=== PATIENT | female | born 1950 | race Caucasian/White ===

== ENCOUNTER 2017-12-08 14:18 | Emergency (ER) | payer OTHER ==
[~2017-12-08] VITALS: Ht 172.7 cm; Wt 103.1 kg
[~2017-12-08 14:18] MED LIST: AMLO10TA2 PO; ASPI-232 PO; CALCTAB5 PO; PANT40TA PO; SULF800T23 PO
[2017-12-08 14:23] VITALS: TEMP 36.8; Ht 172.7 cm; Wt 103.1 kg
--- NOTE | 2017-12-08 14:47 | EMERGENCY ROOM VISIT NOTE ---
History Report prepared by Minerva: Francisca Denny Under the Supervision of: Dr. Mateo Mccoy M.D. First contact with patient: 14:29 Chief Complaint: ANKLE PAIN Stated Complaint: L ANKLE PAIN/ULCERS History of Present Illness The patient is a 67 year old white female with a past medical history of skin problems and ulcers who presents to the ED with a cc of worsening left ankle ulcers beginning In April 2017. Positive redness and drainage. Negative nausea, vomiting, fevers, chills. She describes her pain as a burning and stinging that radiates up her calf. She reports they had ulcers in April 2017 that never healed correctly and turned into a wound. She states she went to the wound center where she had surgery and they referred her to Dr. Deluca, Orthopedics. The patient states she wears compression socks which caused damage to her left Achilles. Source of History: patient Onset: April 2017 Position: ankle (left) Quality: burning, other (stinging) Timing: worsening Associated Symptoms: No fevers, No chills, No nausea, No vomiting Note: Positive redness and drainage. Review of Systems See HPI for pertinent positives and negatives. A total of ten systems were reviewed and were otherwise negative. Past Medical & Surgical Medical Problems: (1) Skin problem Surgical Problems: (1) H/O: hysterectomy Family History No pertinent family history Social History Smoking Status: Never Smoker Smokeless Tobacco Use: No Alcohol Use: none Drug Use: none Marital Status: Occupation Status: retired Current/Historical Medications Scheduled Amlodipine Besylate (Norvasc), 1 TAB PO DAILY Aspirin (Aspir-81), 1 TAB PO DAILY Calcium Carbonate (Calcium), 600 MG PO DAILY Diclofenac (Voltaren), 75 MG PO BID Multiple Vitamins W/ Minerals (Centrum Silver Adult 50+), 1 TAB PO DAILY Pantoprazole (Protonix), 40 MG PO DAILY Sulfa/Trimethoprim (Bactrim Ds 800MG/160MG), 1 TAB PO BID Allergies Coded Allergies: No Known Allergies (Verified , `, 12/08/17) Physical Exam Vital Signs Date Time Temp Pulse Resp B/P (MAP) Pulse Ox O2 Delivery O2 Flow Rate FiO2 12/08/17 16:14 64 16 90/65 96 Room Air 12/08/17 14:23 36.8 112 20 159/96 95 Room Air Physical Exam GENERAL: Awake, alert, well-appearing, NAD HENT: Normocephalic, atraumatic. EYES: Normal conjunctiva. Sclera non-icteric. NECK: Supple. No nuchal rigidity. FROM. RESPIRATORY: CTAB, no rhonchi, wheezing, crackles CARDIAC: RRR, no MRG ABDOMEN: Soft, NTND, BS+ MSK: No chest wall TTP, no LE edema. Mild pain over the medial aspect of the left ankle. Scarring over the distal medial lower leg. 2 healing escar with mild redness. No fluctuance, no drainage, no calor. 2+ DP pulses. Good flexion and extension at the ankle. No sensory deficits. No calf pain, no redness. NEURO: GCS 15, CN 2-12 intact, moves all 4s on command SKIN: No rash or jaundice noted. Medical Decision & Procedures Laboratory Results 12/08/17 15:20 Red Blood Count 4.78, Mean Corpuscular Volume 82.4, Mean Corpuscular Hemoglobin 27.0, Mean Corpuscular Hemoglobin Concent 32.7, Mean Platelet Volume 9.7, Neutrophils (%) (Auto) 54.5, Lymphocytes (%) (Auto) 28.9, Monocytes (%) (Auto) 11.1, Eosinophils (%) (Auto) 4.9, Basophils (%) (Auto) 0.4, Neutrophils # (Auto ) 2.81, Lymphocytes # (Auto) 1.49, Monocytes # (Auto) 0.57, Eosinophils # (Auto ) 0.25, Basophils # (Auto) 0.02 12/08/17 15:20 Test 12/08/17 15:20 White Blood Count 5.15 K/uL (4.8-10.8) Red Blood Count 4.78 M/uL (4.2-5.4) Hemoglobin 12.9 g/dL (12.0-16.0) Hematocrit 39.4 % (37-47) Mean Corpuscular Volume 82.4 fL (80-100) Mean Corpuscular Hemoglobin 27.0 pg (25-34) Mean Corpuscular Hemoglobin Concent 32.7 g/dl (32-36) Platelet Count 223 K/uL (130-400) Mean Platelet Volume 9.7 fL (7.4-10.4) Neutrophils (%) (Auto) 54.5 % Lymphocytes (%) (Auto) 28.9 % Monocytes (%) (Auto) 11.1 % Eosinophils (%) (Auto) 4.9 % Basophils (%) (Auto) 0.4 % Neutrophils # (Auto) 2.81 K/uL (1.4-6.5) Lymphocytes # (Auto) 1.49 K/uL (1.2-3.4) Monocytes # (Auto) 0.57 K/uL (0.11-0.59) Eosinophils # (Auto) 0.25 K/uL (0-0.5) Basophils # (Auto) 0.02 K/uL (0-0.2) RDW Standard Deviation 47.8 fL (36.4-46.3) RDW Coefficient of Variation 16.0 % (11.5-14.5) Immature Granulocyte % (Auto) 0.2 % Immature Granulocyte # (Auto) 0.01 K/uL (0.00-0.02) Erythrocyte Sedimentation Rate 22 mm/hr (0-21) Anion Gap 5.0 mmol/L (3-11) Est Creatinine Clear Calc Drug Dose 83.9 ml/min Estimated GFR () 84.5 Estimated GFR (Non- 72.9 BUN/Creatinine Ratio 14.7 (10-20) Calcium Level 8.8 mg/dl (8.5-10.1) C-Reactive Protein 0.33 mg/dl (0-0.29) Laboratory results reviewed by me Medications Administered Medications (Trade) Dose Ordered Sig/Stef Route Start Time Stop Time Status Last Admin Dose Admin Morphine Sulfate (MoRPHine SULFATE INJ) 4 mg NOW STAT IV 12/08/17 14:50 12/08/17 14:54 DC 12/08/17 15:20 4 MG Tramadol HCl (Ultram Tab) 50 mg NOW STAT PO 12/08/17 14:50 12/08/17 14:54 DC 12/08/17 15:19 50 MG Acetaminophen (Tylenol Tab) 650 mg NOW STAT PO 12/08/17 14:50 12/08/17 14:54 DC 12/08/17 15:20 650 MG Ondansetron HCl (Zofran Inj) 4 mg NOW STAT IV 12/08/17 15:48 12/08/17 15:49 DC 12/08/17 15:54 4 MG ED Course 1433: The patient was evaluated in room A9. A complete history and physical exam was performed. 1625: I reevaluated the patient. Discussed results and discharge instructions: She verbalized understanding and agreement. The patient is ready for discharge. Medical Decision The patient is a 67 year old white female with a past medical history of skin problems and ulcers who presents to the ED with a cc of worsening left ankle ulcers beginning In April 2017. Positive redness and drainage. Negative nausea, vomiting, fevers, chills. Nursing notes reviewed. Ancillary studies and prior records reviewed. Differential diagnosis: Etiologies such as cellulitis, abscess, arterial, thrombis, neuropathy, venous insufficiency, MRSA infection, DVT, necrotizing fasciitis, dermatitis, drug eruption, as well as others were entertained. Patient was seen and evaluated the bedside. Patient has had some recurrent issues with her left lower extremity. Patient describes what sounds like a sort of vein stripping procedure and since then she had developed some ulcers the medial aspect of her left lower extremity. The patient had been seen at wound care clinic and was discharged and was told to follow-up with orthopedics as the patient did have some recurrent pain as well as what again she may be describing is some calcific tendinosis of the Achilles. The patient denies any weightbearing issues. The patient is noted some burning pain. I discussed with the patient that this may be neuropathic pain given the burning nature. The patient may have some localized venous insufficiency changes but the patient has good DP pulses and the patient does not have any lower extremity swelling or erythema to the calf and the patient denies any calf pain. The patient did have blood work completed along with ESR and CRP. The patient also did have a left ankle film. The patient did have a recent MRI of the lower extremity which was negative for again what she may be describing as osteomyelitis. Again negative for this. The patient does not have an elevated white blood cell count. Patient's glucose is 106. Patient's ankle film was negative. The patient's ESR and CRP are borderline elevated. I did discuss the results with the patient. The patient was feeling improved. The patient was told to follow-up with her PCP discuss the possibility of a neuropathic pain medication. Patient was also told to continue Motrin, Tylenol and the patient was given a prescription as well as a home pack for tramadol. Do not believe the patient requires an any further imaging or Doppler studies as the patient has good DP pulses no sensory deficits and no concern for DVT or arterial thrombus. Also the patient's symptoms have resolved and the patient does not have any issues with weightbearing. Patient was given strict follow-up , discharge, and return precautions. All questions were answered. Patient was deemed suitable for outpatient follow-up at this time. Patient agreed with the plan of care and was safely discharged home. Medication Reconcilliation Current Medication List: was personally reviewed by me Blood Pressure Screening Patient's blood pressure: Elevated blood pressure Blood pressure disposition: Elevated BP felt to be situational Impression Primary Impression: Left ankle pain Additional Impressions: Ulcer Skin problem Neuropathy Scribe Attestation The scribe's documentation has been prepared under my direction and personally reviewed by me in its entirety. I confirm that the note above accurately reflects all work, treatment, procedures, and medical decision making performed by me. Departure Information Dispostion Home / Self-Care Prescriptions Tramadol Hcl (ULTRAM) 50 Mg Tab 50 MG PO Q8H for Pain, #12 TAB PRN PAIN Prov: Mateo Mccoy M.D. 12/08/17 Referrals Katia Bales M.D. (PCP) Forms HOME CARE DOCUMENTATION FORM, IMPORTANT VISIT INFORMATION Patient Instructions ED Wound Care, Exercise Foot Ankle, [facility], Neuropathy Peripheral Additional Instructions Please return to the emergency department if you have worsening or recurrent symptoms not amenable to at-home treatment. Please call for a follow-up appointment with her primary care physician. Please take your medications as prescribed. If you have other concerns and/or complaints please feel free to also call your primary care physician's office or return the ED for further evaluation, management, and treatment. You received narcotic or benzodiazepene medication while in the emergency room today. This is an addictive medication that may cause drowziness as well as constipation. Do not drive, operate heavy machinery, or drink alcohol under the influence of this medication. Please cover your wounds and apply topical antibiotic ointment. You may wash with gentle soap and water. You may take 600 mg Ibuprofen every 8 hours as needed for pain/fever with food unless told by your physician not to take NSAIDs. You may take tylenol 650 mg every 6 hours as needed for pain/fever unless told by your physician to not take it or have liver problems. You may take motrin and tylenol separately or at the same time. If you still have discomfort you may take the tramadol. Please be advised that this is a nonnarcotic but can make you sleepy. Please do not use if you require full attention. Take your medications as prescribed. You have been examined and treated today on an emergency basis only. This is not a substitute for, or an effort to provide, complete comprehensive medical care. It is impossible to recognize and treat all injuries or illnesses in a single emergency department visit. It is therefore important that you follow up closely with [facility], your PCP, and/or your specialist(s). Call as soon as possible for an appointment. Thank you for your time and consideration. I look forward to speaking with you again soon. Please don't hesitate to call us if you have any questions. Problem Qualifiers Primary Impression: Left ankle pain Chronicity: acute Qualified Codes: M25.572 - Pain in left ankle and joints of left foot
[2017-12-08] MEDS ORDERED: TRAMADOL HCL 50 MG TAB PO STA (14:50)
[2017-12-08] MEDS ORDERED: ACETAMINOPHEN 325 MG TAB PO STA (14:50)
[2017-12-08] MEDS ORDERED: MoRPHine SULFATE 4 MG/ML 1 ML CARP\\VIAL IV STA (14:50)
--- NOTE | 2017-12-08 15:20 | DIAGNOSTIC IMAGING REPORT ---
L ANKLE MIN 3 VIEWS ROUTINE CLINICAL HISTORY: ulceration/pain L medial aspect ankle infection. Pain. COMPARISON: None. DISCUSSION: Mild degenerative change. Heel spur. Ossification Achilles tendon insertion. No evidence for an erosive process. Mild soft tissue edema IMPRESSION: Moderate degenerative change. Mild soft tissue edema. No acute bony abnormality. The above report was generated using voice recognition software. It may contain grammatical, syntax or spelling errors. Electronically signed by: Jasiel Hinojosa M.D. 12/08/2017 3:18 PM Dictated Date/Time: 12/08/2017 3:18 PM
[2017-12-08 15:35] LABS: BASO % 0.4 %; BASO ABS # 0.02 K/uL (0-0.2); EOS % 4.9 %; EOS ABS # 0.25 K/uL (0-0.5); HEMATOCRIT 39.4 % (37-47); HEMOGLOBIN 12.9 g/dL (12.0-16.0); IG# 0.01 K/uL (0.00-0.02); LYMPH % 28.9 %; LYMPH ABS # 1.49 K/uL (1.2-3.4); MEAN CELL VOLUME 82.4 fL (80-100); MEAN CORPUSCULAR HGB CONC 32.7 g/dl (32-36); MEAN PLATELET VOLUME 9.7 fL (7.4-10.4); MONO % 11.1 %; MONO ABS # 0.57 K/uL (0.11-0.59); NEUT % 54.5 %; NEUT ABS # 2.81 K/uL (1.4-6.5); PLATELET COUNT 223 K/uL (130-400); RED CELL DISTRIBUTION WIDTH SD 47.8 fL (36.4-46.3); WHITE BLOOD COUNT 5.15 K/uL (4.8-10.8)
[2017-12-08] MEDS ORDERED: ONDANSETRON INJ 2 MG/ML 2 ML VIAL ONE (15:45)
[2017-12-08] MEDS ORDERED: ONDANSETRON INJ 2 MG/ML 2 ML VIAL IV STA (15:48)
[2017-12-08] MEDS ORDERED: MULT-845 PO (16:01)
[2017-12-08] MEDS ORDERED: CALC-393 PO (16:01)
[2017-12-08] MEDS ORDERED: DICL-201 PO (16:01)
[2017-12-08 16:02] LABS: CALCIUM 8.8 mg/dl (8.5-10.1); CREATININE 0.84 mg/dl (0.60-1.20)
[2017-12-08] MEDS ORDERED: TRAM-453 PO (16:44)
[2017-12-08] MEDS ORDERED: TRAMADOL HCL 50 MG HOME PACK PO ONE (17:00)
[2017-12-08 17:42] VITALS: BP 107/73; PULSE 78; O2SAT 96
== END 2017-12-08 17:57 | disposition home or self-care (01) ==
LOC: C.EDB 14:20 → C.EDA 17:57
DX: L97.929 Non-pressure chronic ulcer of unspecified part of left lower leg with unspecified severity (principal); G62.9 Polyneuropathy, unspecified; Z98.890 Other specified postprocedural states; Z90.710 Acquired absence of both cervix and uterus; Z79.82 Long term (current) use of aspirin

== ENCOUNTER 2020-06-06 16:47 | Inpatient (IN) ==
--- OUTSIDE RECORDS SUMMARY | 2020-06-06 16:49 | External Medical Summary | Continuity of Care Document ---
:1950 Author Name Faby Stephen, Provider Address Unavailable Unavailable , Care Team Providers Name Role Phone Unavailable Unavailable Unavailable RONALD MICHAEL Unavailable Unavailable Unavailable Unavailable Unavailable Problems Cosmetic Surgery (V50.1) Hypertension (401.9) (I10) Venous ulcer (707.9) (I83.009) Pre-op examination (V72.84) (Z01.818) Arthritis (716.90) (M19.90) Uterovaginal prolapse (618.4) (N81.4) Esophageal reflux (530.81) (K21.9) Cystocele, midline (618.01) (N81.11) Allergies and Adverse Reactions No Known Drug Allergies (Allergy) Medications Meloxicam 15 MG Oral Tablet; TAKE 1 TABLET DAILY. , M.D. Quantity: 90 Refills: 3 Lisinopril 10 MG Oral Tablet; TAKE 1 TABLET DAILY. , M.D. Quantity: 90 Refills: 3 Aspirin 81 MG TABS; TAKE 1 TABLET DAILY. , M.D. Refills: 0 Calcium + D TABS; TAKE 1 TABLET DAILY. , M.D. Refills: 0 Centrum Silver Oral Tablet; TAKE 1 TABLET DAILY. , M.D. Refills: 0 Lyrica 75 MG Oral Capsule; TAKE 1 CAPSULE 3 TIMES DAILY. , M .D. Refills: 0 Procedures History of Knee Arthroplasty Status: Com pleted History of Primary Repair Of Ruptured Achilles Tendon Status: Completed History of Rotator Cuff Repair Status: C ompleted History of Foot Surgery Status: Complete d Cosmetic Surgery History of Anterior Colporrhaphy, Repair Of Cystocele Status: Completed Immunizations Tetanus-Diphtheria Toxoids Td 2-2 LF/0.5ML Intramuscular Elvia pension On: 2006 Influenza On: 18-Jun-2013 Family History Unknown Family Member Family history of Stroke Syndrome (V17.1) Status: Active Comments: Family History Family history of Alzheimer Disease Status: Active Comm ents: Family History Family history of Factor V Leiden Mutation, Status: Active Comments: Family History Hypercoagulation Social History - Smoking Status Never smoked tobacco Plan of Treatment Planned Observations Planned Goals not documented Results No Known Results Results not documented
--- OUTSIDE RECORDS SUMMARY | 2020-06-06 16:50 | External Medical Summary | Continuity of Care Document ---
:1950 Author Name Faby Stephen, Provider Address Unavailable Unavailable , Care Team Providers Name Role Phone Unavailable Unavailable Unavailable RONALD MICHAEL Unavailable Unavailable Unavailable Unavailable Unavailable Problems Cosmetic Surgery (V50.1) Uterovaginal prolapse (618.4) (N81.4) Cystocele, midline (618.01) (N81.11) Esophageal reflux (530.81) (K21.9) Arthritis (716.90) (M19.90) Pre-op examination (V72.84) (Z01.818) Hypertension (401.9) (I10) Venous ulcer (707.9) (I83.009) Allergies and Adverse Reactions No Known Drug Allergies (Allergy) Medications Aspirin 81 MG TABS; TAKE 1 TABLET DAILY. , M.D. Refills: 0 Meloxicam 15 MG Oral Tablet; TAKE 1 TABLET DAILY. , M.D. Quantity: 90 Refills: 3 Lisinopril 10 MG Oral Tablet; TAKE 1 TABLET DAILY. , M.D. Quantity: 90 Refills: 3 Lyrica 75 MG Oral Capsule; TAKE 1 CAPSULE 3 TIMES DAILY. , M .D. Refills: 0 Centrum Silver Oral Tablet; TAKE 1 TABLET DAILY. , M.D. Refills: 0 Calcium + D TABS; TAKE 1 TABLET DAILY. , M.D. Refills: 0 Procedures History of Knee Arthroplasty [...]
[2020-06-06] MEDS ORDERED: LABETALOL HCL IV 5 MG/ML 20ML IV STA (17:30)
[2020-06-06 18:37] LABS: Basophils # (auto) 0.02 K/uL (0-0.2); Basophils % (auto) 0.4 %; Eosinophils # (auto) 0.17 K/uL (0-0.5); Eosinophils % (auto) 3.3 %; Hematocrit (blood only) 42.8 % (37-47); Hemoglobin 14.1 g/dL (12.0-16.0); Immature Granulocytes # (auto) 0.02 K/uL (0.00-0.02); Immature Granulocytes % (auto) 0.4 %; Lymphocytes # (auto) 1.53 K/uL (1.2-3.4); Lymphocytes % (auto) 29.4 %; Mean Corpuscular Hemoglobin 29.3 pg (25-34); Mean Corpuscular Hgb Conc 32.9 g/dL (32-36); Mean Corpuscular Volume 88.8 fL (80-100); Mean Platelet Volume 10.3 fL (7.4-10.4); Monocytes # (auto) 0.41 K/uL (0.11-0.59); Monocytes % (auto) 7.9 %; Neutrophils # (auto) 3.05 K/uL (1.4-6.5); Neutrophils % (auto) 58.6 %; Platelet Count 204 K/uL (130-400); RDW Coefficient of Variation 13.7 % (11.5-14.5); RDW Standard Deviation 44.6 fL (36.4-46.3); Red Blood Count 4.82 M/uL (4.2-5.4)
[2020-06-06 18:48] LABS: INR 0.9 (0.9-1.1); Partial Thromboplastin Ratio 0.9; Partial Thromboplastin Time 25.6 Seconds (21.0-31.0); Prothrombin Time 9.7 Seconds (9.0-12.0)
[2020-06-06 18:53] LABS: Alanine Aminotransferase 55 U/L (12-78); Albumin Level 3.5 gm/dl (3.4-5.0); Aspartate Aminotransferase 31 U/L (15-37); BUN Creatinine Ratio 11.3 (10-20); Blood Urea Nitrogen 12 mg/dl (7-18); Calcium 9.1 mg/dl (8.5-10.1); Carbon Dioxide 28 mmol/L (21-32); Chloride 107 mmol/L (98-107); Creatinine Clr Calc Pharmacy 63.5 ml/min; Est GFR (African American) 62.9; Est GFR (Non-African American) 54.3; Glucose 101 mg/dl (70-99); Magnesium 2.2 mg/dl (1.8-2.4); Potassium 3.9 mmol/L (3.5-5.1); Sodium 141 mmol/L (136-145)
[2020-06-06 18:54] LABS: D Dimer 1240 ug/L FEU (0-500)
[2020-06-06 18:58] LABS: Albumin Globulin Ratio 0.9 (0.9-2); Alkaline Phosphatase 74 U/L (45-117); Bilirubin,Total 0.3 mg/dl (0.2-1); NT Pro B Type Natriuretic Pept 44 pg/ml (0-900); Total Protein 7.5 gm/dl (6.4-8.2); Troponin I < 0.015 ng/ml (0-0.045)
--- NOTE | 2020-06-06 19:10 | XRay Report ---
XR chest 1V portable HISTORY: Dyspnea COMPARISON: None. FINDINGS: No pleural effusions. No pneumothorax. There are low lung volumes. The cardiac silhouette i s top normal in size. No evidence for pulmonary edema. No focal lung consolidations to suggest pneumo lamin. Slightly rotated study. IMPRESSION: No acute process. ACT 112: Negative or not required by law. Electronically signed by: Delfino Silva M.D. 06/06/2020 7:09 PM
[2020-06-06] MEDS ORDERED: OPTIRAY 320 125ml IV ONE (19:58)
--- NOTE | 2020-06-06 20:20 | CT Scan Report ---
CHEST CTA for PULMONARY ARTERIES CT DOSE: 599.12 mGy.cm HISTORY: Worsening shortness of breath. Mid chest pain. TECHNIQUE: Multiaxial CT images of the chest were performed following the intravenous administration of contrast to evaluate the pulmonary arteries. Maximal intensity projection images were also obtaine d. A dose lowering technique was utilized adhering to the principles of ALARA. COMPARISON STUDY: Chest 06/06/2020. FINDINGS: Normal caliber thoracic aorta with no evidence for dissection. The heart is normal in size. No pleural or pericardial effusions. Mildly dilated main pulmonary artery measuring up to 3.4 cm in diameter. This suggests pulmonary arterial hypertension. No filling defects within the pulmonary mg carmen to suggest pulmonary embolus. Limited views of the upper abdomen demonstrate a normal liver, spl een, and adrenal glands. Heterogeneous thyroid gland likely containing a few small nodules/cysts. The largest on the right measures 9 mm. there is 9 mm nodule/cyst within the lower right breast. No medi astinal or hilar lymphadenopathy. Moderate hiatus hernia. The heart is borderline enlarged. Old, heal ed left-sided rib fractures. Metallic anchor within the right humeral head with mild osteoarthritis w ithin the bilateral glenohumeral joints. No pneumothorax. The central airways are patent. A few linea r densities seen within the bilateral mid to lower lung zones. These are nonspecific but favor atelec tasis are scarring. Best seen on image 111 there is an 11 mm subpleural nodular density within the ri ght lower lobe. IMPRESSION: 1. No evidence for pulmonary embolus. 2. Mildly dilated main pulmonary artery suggesting pulmonary arterial hypertension. 3. Borderline cardiomegaly. 4. An 11 mm subpleural nodule within the right lower lobe. Please refer to the chart below for recomm ended follow-up. 5. A 9 mm nodule/cyst within the right lower breast. Follow-up dedicated mammogram is recommended for further evaluation. Please refer to below summary of Fleischner criteria recommendations for follow-up of incidental CT n odules (Ramirez Vazquez, Guidelines for management of small pulmonary nodules detected on CT scans: A sta temvirgil from the Fleischner Society, Radiology 237: [phone].) SOLID NODULES Solitary nodule size: <6 mm * Low risk patients: no follow-up needed * high risk patients: optional CT at 12 months Solitary nodule size: 6-8 mm * Low risk patients: follow-up at 6-12 months, then consider further follow-up at 18-24 months * high risk patients: initial follow-up CT at 6-12 months and then at 18-24 months if no change Solitary nodule size: >8 mm * either low or high risk patients - consider follow-up CT at 3 months, and/or CT-PET, and/or biopsy Multiple nodules size: <6 mm * Low risk patients: no routine follow-up * high risk patients: optional CT at 12 months Multiple nodules size: 6-8 mm * Low risk patients: follow-up at 3-6 months, then consider further follow-up at 18-24 months * high risk patients: follow-up at 3-6 months, then at 18-24 months if no change Multiple nodules size: >8 mm * Low risk patients: follow-up at 3-6 months, then consider further follow-up at 18-24 months * high risk patients: follow-up at 3-6 months, then at 18-24 months if no change Note: newly detected indeterminate nodule in persons 35 years of age or older. * Low risk patients: minimal or absent history of smoking and/or other known risk factors * high risk patients: history of smoking or of other known risk factors (e.g. first degree relative with lung cancer, or exposure to asbestos, radon, uranium) * if a nodule up to 8 mm is partly solid or is ground glass further follow-up is required after 24 m onths to exclude possible slow growing adenocarcinoma (RUBIA) SUBSOLID NODULES Solitary pure ground-glass nodule * nodule size <6 mm - no CT follow-up required * nodule size >=6 mm - follow-up CT at 6-12 months, then every 2 years until 5 years Solitary part-solid nodule * nodule size <6 mm - no CT follow-up required * nodule size >=6 mm - follow-up CT at 3-6 months. If unchanged, and solid component remains <6 mm, then annual follow-up for 5 years Multiple subsolid nodules * nodule size <6 mm - follow-up CT at 3-6 months, consider further follow-up at 2 and 4 years if sta ble * nodule size >=6 mm - follow-up CT at 3-6 months, subsequent management based on the most suspiciou s nodule(s) ACT 112: Negative or not required by law. Electronically signed by: Delfino Silva M.D. 06/06/2020 8:18 PM
--- NOTE | 2020-06-06 23:47 | Emergency Department Note ---
History of Present Illness General Chief complaint: Shortness of Breath/Dyspnea Stated complaint: SOB Source: patient, EMS, RN notes reviewed and other (Primary care records) Mode of arrival: ambulatory Limitations: no limitations History of Present Illness Provider complaint: Shortness of breath Maximum Pain Intensity: 2 This patient is a 69-year-old female who presents emergency department with complaints of shortness of breath on exertion, chest heaviness. The patient was at her primary care provider's office today and was noted to have a low-grade temperature just over 100 degrees by report. Patient apparently does have a cough occasionally. There was a concern for Covid and she was sent in for evaluation. Patient denies any significant exposures or known contacts. Patient admits her blood pressure was elevated at the primary care office as well. She denies any history of smoking. She states she develops chest heaviness with any exertion. She did have a stress test and no clear abnormality was identified. Patient states she also had a CAT scan performed that was "negative." She denies any known fevers, chills, productive cough, vomiting, diarrhea or abdominal pain. She states her has no symptoms. Home Medications Home Medications Medication Instructions Recorded Confirmed Type ascorbic acid (vitamin C) 0 g PO QAM 06/06/20 06/06/20 History aspirin 81 mg PO QPM 06/06/20 06/06/20 History biotin 0 mg PO DAILY 06/06/20 06/06/20 History multivitamin 1 tab PO QAM 06/06/20 06/06/20 History pantoprazole 40 mg PO QAM 06/06/20 06/06/20 History vitamin B complex 1 tab PO DAILY 06/06/20 06/06/20 History lisinopril 20 mg PO QAM 30 Days #60 tab 06/07/20 Rx Allergies Allergy/AdvReac Type Severity Reaction Status Date / Time No Known Allergies Allergy ` Verified 06/06/20 18:57 Past Med/Surg History Medical History (Updated 06/07/20 @ 17:45 by Elizabeth Gamez MD) GERD (gastroesophageal reflux disease) Hypertension Obesity (BMI 30-39.9) Social History Smoking Status: Never smoker Communication Ability: Effective Line Person Required: No marital status: Current Living Situation: Spouse Feels Safe at Home: Yes Assistive Devices: None Review of Systems See HPI for pertinent positives & negatives. and A total of 10 systems reviewed and were otherwise negative Physical Exam Vital Signs Vital Signs - 24 hr 06/06/20 18:00 06/06/20 18:16 06/06/20 18:30 Pulse Rate 109 H 92 H 84 Pulse Rate [Bilateral Apical] Pulse Rate from SpO2 Sensor 109 H 90 84 Pulse Rhythm Respiratory Rate 21 20 22 Blood Pressure 200/139 H 155/97 H Blood Pressure [Left Arm] Blood Pressure Mean 153 107 Blood Pressure Mean [Left Arm] Pulse Oximetry 95 94 Oxygen Delivery Method 06/06/20 18:34 06/06/20 18:40 06/06/20 19:08 Pulse Rate Pulse Rate [Bilateral Apical] 86 Pulse Rate from SpO2 Sensor Pulse Rhythm Regular Respiratory Rate 20 Blood Pressure Blood Pressure [Left Arm] 146/120 H Blood Pressure Mean Blood Pressure Mean [Left Arm] 128 Pulse Oximetry 95 98 95 Oxygen Delivery Method Room Air Room Air 06/06/20 20:09 06/06/20 21:29 Pulse Rate Pulse Rate [Bilateral Apical] 103 H 90 Pulse Rate from SpO2 Sensor Pulse Rhythm Respiratory Rate 20 20 Blood Pressure Blood Pressure [Left Arm] 166/119 H 172/126 H Blood Pressure Mean Blood Pressure Mean [Left Arm] 134 141 Pulse Oximetry 94 93 Oxygen Delivery Method Room Air Vital signs reviewed. General: Well-appearing 69 yo female, in no significant distress. HEENT: No scleral icterus, PERRLA, neck supple. Atraumatic. Cardiovascular: Regular rate and rhythm, no extra sounds. Pulmonary: Clear to auscultation bilaterally, normal work of breathing. Abdomen: Soft, nontender, nondistended, positive bowel sounds. Musculoskeletal: Atraumatic, no peripheral edema. Neurologic: Patient awake alert and oriented x 3. Skin: Warm, dry, no rash Course Administered Medications Discontinued Medications Ascorbic Acid (Ascorbic Acid 500 Mg Tab) 500 mg PO QAM [facility] Stop: 07/07/20 08:59 Last Admin: 06/07/20 09:49 Dose: 500 mg Documented by: [id number] Ioversol (Optiray 320 125ml) 116 ml IV ONCE ONE Stop: 06/06/20 19:59 Last Admin: 06/06/20 19:59 Dose: 116 ml Documented by: [id number] Labetalol HCl (Labetalol Hcl Iv 5 Mg/Ml 20ml) 10 mg IV NOW STA Stop: 10/19/20 17:31 Last Admin: 06/06/20 18:32 Dose: 10 mg Documented by: [id number] Cosigned by: [id number] Lisinopril (Lisinopril 10 Mg Tab) 10 mg PO QAM NEHAL Stop: 07/07/20 08:59 Last Admin: 06/07/20 09:49 Dose: 10 mg Documented by: [id number] Lisinopril (Lisinopril 10 Mg Tab) 10 mg PO ONE ONE Stop: 06/07/20 13:31 Last Admin: 06/07/20 14:45 Dose: 10 mg Documented by: [id number] Multivitamins (Multivitamin Tab) 1 tab PO QAM NEHAL Stop: 07/07/20 08:59 Last Admin: 06/07/20 09:49 Dose: 1 tab Documented by: [id number] Pantoprazole Sodium (Pantoprazole 40 Mg Tab) 40 mg PO QAM NEHAL Stop: 07/07/20 08:59 Last Admin: 06/07/20 09:49 Dose: 40 mg Documented by: [id number] Vitamin B Complex (Vitamin B Complex Tab) 1 tab PO DAILY NEHAL Stop: 07/07/20 08:59 Last Admin: 06/07/20 09:49 Dose: 1 tab Documented by: [id number] Medical Decision Making Differential Diagnosis DDx: Reactive airway disease, pneumonia, pneumothorax, COPD, CHF, infections, cardiac ischemia, pulmonary embolism, musculoskeletal, gastrointestinal, as well as other pathologies. Medical Records Attestation: I reviewed the patient's medical records. Home Medications Current Medication List: was personally reviewed by me Laboratory Data Attestation: I reviewed the patient's lab results. Result diagrams: 06/07/20 04:39 06/07/20 04:39 Lab Results 06/06/20 06/06/20 06/06/20 Range/Units 18:18 18:18 18:18 WBC 5.20 (4.8-10.8) K/uL RBC 4.82 (4.2-5.4) M/uL Hgb 14.1 (12.0-16.0) g/dL Hct 42.8 (37-47) % MCV 88.8 (80-100) fL MCH 29.3 (25-34) pg MCHC 32.9 (32-36) g/dL RDW Std Deviation 44.6 (36.4-46.3) fL RDW Coeff of Diya 13.7 (11.5-14.5) % Plt Count 204 (130-400) K/uL MPV 10.3 (7.4-10.4) fL Immature Gran % (Auto) 0.4 % Neut % (Auto) 58.6 % Lymph % (Auto) 29.4 % Sawyer % (Auto) 7.9 % Eos % (Auto) 3.3 % Baso % (Auto) 0.4 % Neut # (Auto) 3.05 (1.4-6.5) K/uL Lymph # (Auto) 1.53 (1.2-3.4) K/uL Sawyer # (Auto) 0.41 (0.11-0.59) K/uL Eos # (Auto) 0.17 (0-0.5) K/uL Baso # (Auto) 0.02 (0-0.2) K/uL Immature Gran # (Auto) 0.02 (0.00-0.02) K/uL PT 9.7 (9.0-12.0) Seconds INR 0.9 (0.9-1.1) APTT 25.6 (21.0-31.0) Seconds PTT Ratio 0.9 D-Dimer 1240 H* (0-500) ug/L FEU Sodium 141 (136-145) mmol/L Potassium 3.9 (3.5-5.1) mmol/L Chloride 107 (98-107) mmol/L Carbon Dioxide 28 (21-32) mmol/L Anion Gap 6.0 (3-11) BUN 12 (7-18) mg/dl Creatinine 1.06 (0.6-1.2) mg/dl Est Cr Clr Drug Dosing 63.5 ml/min Est GFR ( Amer) 62.9 Est GFR (Non-Af Amer) 54.3 BUN/Creatinine Ratio 11.3 (10-20) Glucose 101 H (70-99) mg/dl Calcium 9.1 (8.5-10.1) mg/dl Magnesium 2.2 (1.8-2.4) mg/dl Total Bilirubin 0.3 (0.2-1) mg/dl AST 31 (15-37) U/L ALT 55 (12-78) U/L Alkaline Phosphatase 74 (45-117) U/L Troponin I < 0.015 (0-0.045) ng/ml NT-Pro-B Natriuret Pep 44 (0-900) pg/ml Total Protein 7.5 (6.4-8.2) gm/dl Albumin 3.5 (3.4-5.0) gm/dl Globulin 4.0 (2.5-4.0) gm/dl Albumin/Globulin Ratio 0.9 (0.9-2) COVID-19 Eval Order COVID-19 PCR (Negative) 06/06/20 06/06/20 Range/Units 18:25 18:25 WBC (4.8-10.8) K/uL RBC (4.2-5.4) M/uL Hgb (12.0-16.0) g/dL Hct (37-47) % MCV (80-100) fL MCH (25-34) pg MCHC (32-36) g/dL RDW Std Deviation (36.4-46.3) fL RDW Coeff of Diya (11.5-14.5) % Plt Count (130-400) K/uL MPV (7.4-10.4) fL Immature Gran % (Auto) % Neut % (Auto) % Lymph % (Auto) % Sawyer % (Auto) % Eos % (Auto) % Baso % (Auto) % Neut # (Auto) (1.4-6.5) K/uL Lymph # (Auto) (1.2-3.4) K/uL Sawyer # (Auto) (0.11-0.59) K/uL Eos # (Auto) (0-0.5) K/uL Baso # (Auto) (0-0.2) K/uL Immature Gran # (Auto) (0.00-0.02) K/uL PT (9.0-12.0) Seconds INR (0.9-1.1) APTT (21.0-31.0) Seconds PTT Ratio D-Dimer (0-500) ug/L FEU Sodium (136-145) mmol/L Potassium (3.5-5.1) mmol/L Chloride (98-107) mmol/L Carbon Dioxide (21-32) mmol/L Anion Gap (3-11) BUN (7-18) mg/dl Creatinine (0.6-1.2) mg/dl Est Cr Clr Drug Dosing ml/min Est GFR ( Amer) Est GFR (Non-Af Amer) BUN/Creatinine Ratio (10-20) Glucose (70-99) mg/dl Calcium (8.5-10.1) mg/dl Magnesium (1.8-2.4) mg/dl Total Bilirubin (0.2-1) mg/dl AST (15-37) U/L ALT (12-78) U/L Alkaline Phosphatase (45-117) U/L Troponin I (0-0.045) ng/ml NT-Pro-B Natriuret Pep (0-900) pg/ml Total Protein (6.4-8.2) gm/dl Albumin (3.4-5.0) gm/dl Globulin (2.5-4.0) gm/dl Albumin/Globulin Ratio (0.9-2) COVID-19 Eval Order Covid19 Done [address] [facility] COVID-19 PCR NEGATIVE (Negative) Imaging Data Radiologist's Impression: XR chest 1V portable HISTORY: Dyspnea COMPARISON: None. FINDINGS: No pleural effusions. No pneumothorax. There are low lung volumes. The cardiac silhouette is top normal in size. No evidence for pulmonary edema. No focal lung consolidations to suggest pneumonia. Slightly rotated study. IMPRESSION: No acute process. ACT 112: Negative or not required by law. Electronically signed by: Delfino Silva M.D. 06/06/2020 7:09 PM Dictated: 06/06/201906 Transcribed: 06/06/201906 CHEST CTA for PULMONARY ARTERIES CT DOSE: 599.12 mGy.cm HISTORY: Worsening shortness of breath. Mid chest pain. TECHNIQUE: Multiaxial CT images of the chest were performed following the intravenous administration of contrast to evaluate the pulmonary arteries. Maximal intensity projection images were also obtained. A dose lowering technique was utilized adhering to the principles of ALARA. COMPARISON STUDY: Chest 06/06/2020. FINDINGS: Normal caliber thoracic aorta with no evidence for dissection. The heart is normal in size. No pleural or pericardial effusions. Mildly dilated main pulmonary artery measuring up to 3.4 cm in diameter. This suggests pulmonary arterial hypertension. No filling defects within the pulmonary ar teries to suggest pulmonary embolus. Limited views of the upper abdomen demonstrate a normal liver, spleen, and adrenal glands. Heterogeneous thyroid gland likely containing a few small nodules/cysts. The largest on the right measures 9 mm. there is 9 mm nodule/cyst within the lower right breast. No mediastinal or hilar lymphadenopathy. Moderate hiatus hernia. The heart is borderline enlarged. Old, healed left-sided rib fractures. Metallic anchor within the right humeral head with mild osteoarthritis within the bilateral glenohumeral joints. No pneumothorax. The central airways are patent. A few linear densities seen within the bilateral mid to lower lung zones. These are nonspecific but favor atelectasis are scarring. Best seen on image 111 there is an 11 mm subpleural nodular density within the right lower lobe. IMPRESSION: 1. No evidence for pulmonary embolus. 2. Mildly dilated main pulmonary artery suggesting pulmonary arterial hypertension. 3. Borderline cardiomegaly. 4. An 11 mm subpleural nodule within the right lower lobe. Please refer to the chart below for recommended follow-up. 5. A 9 mm nodule/cyst within the right lower breast. Follow-up dedicated mammogram is recommended for further evaluation. ECG Data Attestation: I personally reviewed and interpreted this ECG as follows: Indication: + SOB/dyspnea Rate (beats per minute): 95 Rhythm: + normal sinus ECG Intervals/blocks: + Normal QT-c (429) ECG Prentice: + Normal ECG ST segments: + Normal ST segments ECG Findings: no PACs and no PVCs Blood Pressure Blood Pressure Findings: Elevated blood pressure Blood Pressure Disposition: further management by hospitalist SHARON Gresham This patient was evaluated and appeared to be in no significant distress. IV access was obtained and laboratory work was drawn. An order for cardiac monitoring was placed and the patient is noted to be in a sinus tachycardia at 1 09 bpm. EKG reveals no evidence of acute ischemia. There is no evidence of ectopy. Chest x-ray is negative for focal infiltrate or failure. Patient's laboratory work reveals a normal WBC, negative troponin but an elevated D-dimer. Patient's vital signs revealed markedly elevated blood pressure. She was given 10 mg of IV labetalol with modest improvement. Patient states her blood pressure was elevated at the PCPs office as well. CT scan of the chest was performed and is negative for PE and focal infiltrate however is concerning for pulmonary nodule, breast cyst and evidence of pulmonary hypertension. Patient has tested Covid negative. Patient states she is feeling much improved however blood pressure has remained very high. Patient states she is normally well controlled last checked in February of this year. Given her symptoms, marked hypertension and findings on CT scan, patient will be evaluated by the hospitalist for further management. Patient is aware of the plan and agrees. Impression & Plan Hypertensive urgency, Dyspnea on exertion Discharge Plan Visit Data Chief Complaint: Shortness of Breath/Dyspnea Stated Complaint: SOB ED Provider: Elizabeth Gamez Discharge Problem: Hypertensive urgency, Dyspnea on exertion Patient Disposition: Admitted As Inpatient Discharge Instructions Interventions: ED Discharge Assessment Last Done: 06/06/20 23:26
[2020-06-07] MEDS ORDERED: POLYETHYLENE (MIRALAX) 17 GM PACK PO PRN (00:15)
[2020-06-07] MEDS ORDERED: ONDANSETRON INJ 2 MG/ML 2 ML VIAL IV PRN (00:15)
[2020-06-07] MEDS ORDERED: NITROGLYCERIN SL 0.4 MG/TAB TAB SL PRN (00:15)
[2020-06-07] MEDS ORDERED: ACETAMINOPHEN 325 MG TAB PO PRN (00:15)
[2020-06-07] MEDS ORDERED: LABETALOL HCL IV 5 MG/ML 20ML IV PRN (00:15)
--- NOTE | 2020-06-07 02:52 | History and Physical Report ---
DATE OF ADMISSION: 06/06/2020 CHIEF COMPLAINT: Chest pain and shortness of breath on exertion. HISTORY OF PRESENT ILLNESS: This is a 69-year-old female with past medical history significant for hyperlipidemia, obstructive sleep apnea, not using CPAP as per the Epic, deviated nasal septum, hypertension, GERD, hereditary and idiopathic peripheral neuropathy, who lives with her , comes with chest pain. The patient says she is having chest pain since the last 4-5 days on the middle of the chest radiating to the right side and to the back, pressure like feeling 2/10 to 3/10 in severity. It is mostly constant, sometimes comes and goes, she is also getting short of breath on exertion. The patient has been dealing with shortness of breath for the last 4-5 years. This is progressively getting worse. Today walking from the parking to the ER, she became short of breath. She had hiatal hernia thought could be from that. Denies any fever, chills. No headache, no blurred vision, no earache, no runny nose, no sore throat. She says she lost loss of sense of smell and taste in August, but she is okay now. Once in a while, she thinks the food gets stuck in the lower part of esophagus, but did not had any problems with that. Denies any abdominal pain. No nausea or vomiting, no sweating, no dizziness. Normal bowel and bladder movements. No swelling in the legs. Currently resting comfortably and hemodynamically stable. Says the last few days climbing steps is making her short of breath and also making the chest pain some what worse. Before it was only shortness of breath, but last 4-5 days she is also having chest pain. ALLERGIES: No known drug allergies. PAST MEDICAL HISTORY: As mentioned above. PAST SURGICAL HISTORY: Bilateral knee arthroplasty, colonoscopy, cystoscopy, EGDs, cystocele repair, repair of vagina, right ruptured rotator cuff repair, Achilles tendon repair, total hysterectomy. MEDICATIONS: The patient is on lisinopril 10 mg p.o. daily, Protonix 40 mg p.o. daily, ascorbic acid 500 mg p.o. daily, Caltrate 600 plus D 1 tablet daily, aspirin 81 mg p.o. daily, multivitamins 1 capsule p.o. daily. FAMILY HISTORY: Significant for father had skin cancer, Alzheimer disease, at the age of 82. Mother had CVA, CHF, rheumatic fever, and at age of 78. Daughter has lobar carcinoma in situ. SOCIAL HISTORY: , lives with . No smoking. Alcohol occasional. No drug use. REVIEW OF SYSTEMS: As per HPI. Rest of the review of systems negative. PHYSICAL EXAMINATION: GENERAL: The patient is of moderate build, not in acute distress. VITAL SIGNS: Temperature 37.3, pulse 90, respiratory rate 20, blood pressure 172/126, oxygen 93% on room air. HEENT: No pallor, no icterus. Pupils equal, round, reactive to light. NECK: No JVD, no neck masses, no carotid bruits. CARDIOVASCULAR: S1, S2 heard, regular rate and rhythm, no murmur, no gallop. RESPIRATORY SYSTEM: Normal AP diameter. No accessory muscle use. No wheezing, no crackles. ABDOMEN: Soft, bowel sounds present, nontender. No distention. CENTRAL NERVOUS SYSTEM: Cranial nerves II-XII grossly intact. Nonfocal. EXTREMITIES: No edema, no erythema. LABORATORY DATA: WBC 5.2, hemoglobin 14.1, hematocrit 42.8, platelets 204. PT 9.7, INR 0.9, APTT 25.6. D-dimer 1240. Sodium 141, potassium 3.9, chloride 107, bicarbonate 28, BUN 12, creatinine 1.06, serum glucose 101, calcium 9.1, magnesium 2.2, total bilirubin 0.3, AST 31, ALT 35, alkaline phosphatase 74. Troponin I less than 0.015. BNP 44. COVID-19 PCR negative. IMAGING: CT of the chest, no evidence for pulmonary embolus, mildly dilated main pulmonary artery suggestive of pulmonary arterial hypertension, borderline cardiomegaly. A 11-mm subpleural nodule within the right lower lobe and a 9-mm nodule in the right lower breast. Followup mammogram is recommended for further evaluation. Chest x-ray, no acute process. EKG: Normal sinus rhythm at a rate of 95, no significant change was found. ASSESSMENT AND PLAN: A 69-year-old female who presents with chest pain and shortness of breath with exertion. 1. Chest pain, rule out acute coronary syndrome. Initial troponin negative and EKG unremarkable. Risk factors of age, hypertension, obesity. We will follow the serial enzymes, echocardiogram. Keep n.p.o. and consult cardiology in the a.m. for further recommendation. 2. Shortness of breath on exertion, going for last 4-5 years. Could be from the pulmonary hypertension.uncontrolled HTN? Follow the echocardiogram. No smoking history. Needs followup. 3. Lung nodule ,11 mm subpleural nodule within the right lower lobe. Needs followup CAT scan in 3 months. 4. Right breast nodule 10 mm, needs followup with mammogram. 5. Hypertension. Continue home medication of lisinopril. Blood pressure is elevated in the ER, received labetalol. We will place on IV labetalol p.r.n. Monitor in the tele floor.May need to adjust BP meds. 6. Gastroesophageal reflux disease and hiatal hernia. Continue Protonix. 7. Obstructive sleep apnea, not using CPAP.MAy need nocturnal pulse ox study 8. Hyperlipidemia, not on any medication. Will follow the lipid profile. 9. Deep vein thrombosis prophylaxis, sequential compression devices. 10. Disposition: Admit to med tele. Level 1 full code. Expect to discharge home and follow with family doctor. RADHA
[2020-06-07 05:09] LABS: Basophils # (auto) 0.02 K/uL (0-0.2); Basophils % (auto) 0.3 %; Eosinophils # (auto) 0.21 K/uL (0-0.5); Eosinophils % (auto) 3.7 %; Hematocrit (blood only) 41.3 % (37-47); Hemoglobin 13.8 g/dL (12.0-16.0); Immature Granulocytes # (auto) 0.01 K/uL (0.00-0.02); Immature Granulocytes % (auto) 0.2 %; Lymphocytes # (auto) 1.55 K/uL (1.2-3.4); Lymphocytes % (auto) 27.1 %; Mean Corpuscular Hemoglobin 29.4 pg (25-34); Mean Corpuscular Hgb Conc 33.4 g/dL (32-36); Mean Corpuscular Volume 87.9 fL (80-100); Mean Platelet Volume 10.4 fL (7.4-10.4); Monocytes % (auto) 10.5 %; Neutrophils # (auto) 3.34 K/uL (1.4-6.5); Neutrophils % (auto) 58.2 %; Platelet Count 181 K/uL (130-400); RDW Coefficient of Variation 13.4 % (11.5-14.5); RDW Standard Deviation 42.9 fL (36.4-46.3); White Blood Count 5.73 K/uL (4.8-10.8)
[2020-06-07 05:33] LABS: BUN Creatinine Ratio 13.3 (10-20); Calcium 8.7 mg/dl (8.5-10.1); Creatinine Clr Calc Pharmacy 80.7 ml/min; Est GFR (African American) 84.6; Magnesium 2.1 mg/dl (1.8-2.4); Potassium 3.6 mmol/L (3.5-5.1)
--- NOTE | 2020-06-07 08:34 | Electrocardiogram Report ---
Test Reason : Blood Pressure : / mmHG Vent. Rate : 084 BPM Atrial Rate : 084 BPM P-R Int : 162 ms QRS Dur : 080 ms QT Int : 386 ms P-R-T Axes : 052 028 021 degrees QTc Int : 456 ms Normal sinus rhythm Normal ECG When compared with ECG of 06-JUN-2020 18:00, No significant change was found Confirmed by Matteo Mancini ([id number]) on 06/07/2020 8:34:23 AM Referred By: REFERRED SELF Confirmed By:Matteo Mancini
[2020-06-07] MEDS ORDERED: MULTIVITAMIN TAB PO SCH (09:00)
[2020-06-07] MEDS ORDERED: PANTOprazole 40 MG TAB PO SCH (09:00)
[2020-06-07] MEDS ORDERED: VITAMIN B COMPLEX TAB PO SCH (09:00)
[2020-06-07] MEDS ORDERED: ASCORBIC ACID 500 MG TAB PO SCH (09:00)
[2020-06-07] MEDS ORDERED: lisinopriL 10 MG TAB PO SCH (09:00)
--- NOTE | 2020-06-07 09:43 | Electrocardiogram Report ---
Test Reason : Blood Pressure : / mmHG Vent. Rate : 095 BPM Atrial Rate : 095 BPM P-R Int : 158 ms QRS Dur : 078 ms QT Int : 342 ms P-R-T Axes : 051 013 006 degrees QTc Int : 429 ms Normal sinus rhythm Normal ECG When compared with ECG of 03-AUG-2014 16:37, No significant change was found Confirmed by Matteo Mancini ([id number]) on 06/07/2020 9:43:20 AM Referred By: REFERRED SELF Confirmed By:Matteo Mancini
--- NOTE | 2020-06-07 10:25 | Cardiology Consultation ---
Date of Consultation June 07, 2020 Assessment & Plan (1) Chest pain at rest: (2) Pulmonary artery hypertension: (3) Dyspnea on effort: (4) Hiatal hernia: (5) Hypertension: (6) GERD (gastroesophageal reflux disease): (7) Obesity (BMI 30-39.9): Atypical chest pain. Symptoms reproduced with movement of the right upper extremity. EKG's without acute change. Troponin negative x2. Resting echocardiography with preserved LV systolic function, without regional wall motion abnormalities. Options of management discussed with patient. Recommend outpatient Lexiscan nuclear stress testing to assess the gradually progressive exertional dyspnea, the atypical chest pain, and her cardiac risk factors. Pharmacologic stress testing advised given her presumed inability to ambulate adequately for exercise stress testing (poor exercise tolerance observed with prior stress testing in 2017). Recommend referral to sleep medicine, evaluation and treatment of obstructive sleep apnea. Supervising Physician Co-Signing Physician Notes Patient seen and examined the bedside. Describes intermittent chest discomfort both with deep inspiration and right arm/shoulder movement x5 days. Chronic dyspnea on exertion noted for 5 years. Previous stress testing performed 2017 - for inducible ischemia at low workload. Recently diagnosed with obstructive sleep apnea. Currently undergoing CPAP titration. Denies any symptoms at rest. PE: VSS, hypertensive. General: NAD, awake alert [place] x3. Heart: Regular, normal S1, S2, no murmur. Lungs: Clear bilateral, no rales, rhonchi, wheeze. Extremities: No significant peripheral edema. Neurologic: No focal motor deficit A/P: Agree with above PA-C history, physical exam, assessment and plan. Proceed with outpatient Lexiscan nuclear stress testing for further evaluation/stratification of atypical chest discomfort. Recommend repeat resting 2D transthoracic echocardiogram in 3 months for assessment of estimated pulmonary arterial pressure. Consider addition of low-dose diuretic therapy to optimize blood pressure control pending review of ambulatory blood pressure readings. Sodium restriction advised. Thank you for allow me to participate in the care of your patient. History of Present Illness Reason for Consultation: Chest pain Requesting Physician: Paula Attending Physician: Christiano History of Present Illness Mr. Robyn Hickey is a very pleasant 69-year-old female who was admitted to [facility] on June 06, 2020 due to dyspnea and chest discomfort. Patient describes to the undersigned experiencing shortness of breath for a number of years that she feels has been gradually increasing. She also notes bendopnea. She notes experiencing dyspnea when walking from the [facility] to her automobile after a recent breast ultrasound. At the end of last week she notes washing windows then shortly thereafter developing heaviness/tightness in the mid chest that seems to radiate around the right side and into the middle of her back. The discomfort in the chest is aggravated by movement of the right upper extremity/right shoulder. It has been present off and on for the last few days. It is not aggravated by activity. EKG negative for acute change. Troponin negative x 2. Resting echocardiography revealed normal LV systolic function without regional wall motion abnormalities. Mild mitral and tricuspid regurgitation noted. Estimated pulmonary artery systolic pressure was 42. Grade 1 diastolic dysfunction observed. An elevated D-dimer led to a CT scan of the chest that was negative for PE. It did reveal a mildly dilated main pulmonary artery suggesting pulmonary artery hypertension, borderline cardiomegaly, an 11 mm subpleural nodule within the right lower lobe, and a 9 mm nodule in the right lower breast. Continuous telemetry monitoring revealed one short run of atrial tachycardia, asymptomatic. Otherwise telemetry reveals sinus rhythm typically in the 70s and 80s. Past Medical and Surgical History: Hypertension Dyslipidemia Untreated obstructive sleep apnea GERD Hereditary and idiopathic peripheral neuropathy Anxiety Diffuse cystic mastopathy Osteoarthritis Diverticulosis Status post cystocele repair Status post right Achilles tendon repair following rupture Status post total hysterectomy Family History: Mother had rheumatic fever, undergoing mitral valve replacement. She suffered a CVA in 1994, dying approximately 5 years later at the age of 73. Father had Alzheimer's, passing around the age of 80. Sister without cardiac issues. Aunt, Ceyc Nicole, with atrial fibrillation hypertension. Social History: Non-smoker. Rare alcohol. No illegal drug use. . 2 children. Retired from [employer] in 2010. Allergies Allergy/AdvReac Type Severity Reaction Status Date / Time No Known Allergies Allergy ` Verified 06/06/20 18:57 Home Medications Home Medications Medication Instructions Recorded Confirmed Type ascorbic acid (vitamin C) 0 g PO QAM 06/06/20 06/06/20 History aspirin [Aspir-Low] 81 mg PO QPM 06/06/20 06/06/20 History biotin 0 mg PO DAILY 06/06/20 06/06/20 History lisinopril 10 mg PO QAM 06/06/20 06/06/20 History multivitamin [Multiple Vitamin] 1 tab PO QAM 06/06/20 06/06/20 History pantoprazole 40 mg PO QAM 06/06/20 06/06/20 History vitamin B complex 1 tab PO DAILY 06/06/20 06/06/20 History Patient History Medical History (Updated 06/07/20 @ 10:19 by Jasiel Lyman) GERD (gastroesophageal reflux disease) Hypertension Obesity (BMI 30-39.9) Social History Smoking Status: Never smoker Communication Ability: Effective Coal Shooter Required: No marital status: Current Living Situation: Spouse Feels Safe at Home: Yes Assistive Devices: None Review of Systems Review of Systems: All systems reviewed & are unremarkable except as noted in HPI & below Constitutional: + fever and + daytime sleepiness Eyes: No amaurosis fugax Ear, Nose, Mouth, Throat: + snoring Respiratory: + dyspnea on exertion and + snoring; no cough, no hemoptysis and no pain on inspiration Cardiovascular: + chest pain, + dyspnea on exertion and + palpitations; no orthopnea, no syncope and no edema Gastrointestinal: + early satiety, + heartburn and + nausea; no melena Integumentary: + skin ulcer; no rash [facility] of venous ulcers, [facility] Physical Exam Physical Exam: General: A&Ox3. NAD. HEENT: Normocephalic. Atraumatic. PER. Conjunctiva pink, sclera clear. Neck: No carotid bruits. No JVD. No HJR. Heart: RRR. Soft systolic murmur at the LLSB. Lungs: Clear to auscultation. Abdomen: +BS. Soft. Nontender. No masses or organomegaly. Extremities: Stasis changes. No clubbing, cyanosis, or edema. Limited neurological examination is without focal deficits. Pulses: radial=2/4, posterior tibial=2/4. Results & Data ([facility]) Vital Signs (Past 12 Hours) Vital Signs Temp Pulse Pulse Resp BP Pulse Ox 06/07/20 07:34 36.8 C 84 18 143/85 H 92 06/07/20 01:34 36.8 C 16 93 06/07/20 01:15 92 H 151/89 H 10/19/20 23:17 94 H 20 154/100 H 93 06/06/20 22:43 77 20 164/100 H 94 Laboratory Results Laboratory Results - last 24 hr 06/06/20 06/06/20 06/06/20 18:18 18:18 18:18 WBC 5.20 RBC 4.82 Hgb 14.1 Hct 42.8 MCV 88.8 MCH 29.3 MCHC 32.9 RDW Std Deviation 44.6 RDW Coeff of Diya 13.7 Plt Count 204 MPV 10.3 Immature Gran % (Auto) 0.4 Neut % (Auto) 58.6 Lymph % (Auto) 29.4 [place] % (Auto) 7.9 Eos % (Auto) 3.3 Baso % (Auto) 0.4 Neut # (Auto) 3.05 Lymph # (Auto) 1.53 [place] # (Auto) 0.41 Eos # (Auto) 0.17 Baso # (Auto) 0.02 Immature Gran # (Auto) 0.02 PT 9.7 INR 0.9 APTT 25.6 PTT Ratio 0.9 D-Dimer 1240 H* Sodium 141 Potassium 3.9 Chloride 107 Carbon Dioxide 28 Anion Gap 6.0 BUN 12 Creatinine 1.06 Est Cr Clr Drug Dosing 63.5 Est GFR ( Amer) 62.9 Est GFR (Non-Af Amer) 54.3 BUN/Creatinine Ratio 11.3 Glucose 101 H Calcium 9.1 Magnesium 2.2 Total Bilirubin 0.3 AST 31 ALT 55 Alkaline Phosphatase 74 Troponin I < 0.015 NT-Pro-B Natriuret Pep 44 Total Protein 7.5 Albumin 3.5 Globulin 4.0 Albumin/Globulin Ratio 0.9 COVID-19 Eval Order COVID-19 PCR 06/06/20 06/06/20 06/07/20 18:25 18:25 04:39 WBC RBC Hgb Hct MCV MCH MCHC RDW Std Deviation RDW Coeff of Diya Plt Count MPV Immature Gran % (Auto) Neut % (Auto) Lymph % (Auto) [place] % (Auto) Eos % (Auto) Baso % (Auto) Neut # (Auto) Lymph # (Auto) [place] # (Auto) Eos # (Auto) Baso # (Auto) Immature Gran # (Auto) PT INR APTT PTT Ratio D-Dimer Sodium Potassium Chloride Carbon Dioxide Anion Gap BUN Creatinine Est Cr Clr Drug Dosing Est GFR ( Amer) Est GFR (Non-Af Amer) BUN/Creatinine Ratio Glucose Calcium Magnesium Total Bilirubin AST ALT Alkaline Phosphatase Troponin I < 0.015 NT-Pro-B Natriuret Pep Total Protein Albumin Globulin Albumin/Globulin Ratio COVID-19 Eval Order Covid19 Done at [facility] COVID-19 PCR NEGATIVE 06/07/20 06/07/20 04:39 04:39 WBC 5.73 RBC 4.70 Hgb 13.8 Hct 41.3 MCV 87.9 MCH 29.4 MCHC 33.4 RDW Std Deviation 42.9 RDW Coeff of Diya 13.4 Plt Count 181 MPV 10.4 Immature Gran % (Auto) 0.2 Neut % (Auto) 58.2 Lymph % (Auto) 27.1 [place] % (Auto) 10.5 Eos % (Auto) 3.7 Baso % (Auto) 0.3 Neut # (Auto) 3.34 Lymph # (Auto) 1.55 [place] # (Auto) 0.60 H Eos # (Auto) 0.21 Baso # (Auto) 0.02 Immature Gran # (Auto) 0.01 PT INR APTT PTT Ratio D-Dimer Sodium 141 Potassium 3.6 Chloride 107 Carbon Dioxide 29 Anion Gap 5.0 BUN 11 Creatinine 0.83 Est Cr Clr Drug Dosing 80.7 Est GFR ( Amer) 84.6 Est GFR (Non-Af Amer) 73.0 BUN/Creatinine Ratio 13.3 Glucose 89 Calcium 8.7 Magnesium 2.1 Total Bilirubin AST ALT Alkaline Phosphatase Troponin I NT-Pro-B Natriuret Pep Total Protein Albumin Globulin Albumin/Globulin Ratio COVID-19 Eval Order COVID-19 PCR
--- NOTE | 2020-06-07 13:23 | Hospitalist Progress Note ---
Date of Service June 07, 2020 Assessment & Plan (1) Chest pain: Patient admitted with chest pain chest tightness, reproducible with palpation Appreciate input from cardiology, serial troponin negative echo no wall motion abnormality Stable to be discharged home today outpatient follow-up with cardiology for Nuclear stress test (2) Uncontrolled hypertension: on admission SBP was in 180's -possible causing the presenting symptoms ? increased dose of Lisinopril form 10 mg daily to 20 mg daily out pt follow up with Family physician Incidental finding of lung an breast nodule : Lung nodule ,11 mm subpleural nodule within the right lower lobe. Needs followup CAT scan in 3 months. Right breast nodule 10 mm, needs followup with mammogram. By CMS guidelines, a determination that the admission or continued stay is not medically necessary has been made by a member of the UR committee and a physician for this hospital stay, therefore a Code 44 will be completed and the Inpatient admission will be changed to outpatient. Admission and Anticipated Discharge Date Admission Date: June 06, 2020 Subjective no complain of chest pain or sob no recurrence of symptoms Physical Exam Constitutional: WD/WN, vitals as above Eyes: PERRL, conjunctivae normal, anicteric sclerae ENMT: external ear and nose normal, oropharynx normal Neck: trachea midline, no thyromegaly Respiratory: normal respiratory effort, lungs clear to auscultation Cardiovascular: RRR, no murmur, no edema Musculoskeletal: no cyanosis or clubbing, extremities motor strength 5/5 Skin: no rashes, warm and dry Neurologic: PERRL, EOMI, accommodation nl, no face palsy, no dysarthria Psychiatric: A+Ox3, euthymic affect Results & Data Results & Data ([facility]) Vital Signs (Past 12 Hours) Vital Signs Temp Pulse Resp BP Pulse Ox 06/07/20 11:23 37.0 C 88 18 154/92 H 93 06/07/20 07:34 36.8 C 84 18 143/85 H 92 06/07/20 01:34 36.8 C 16 93
[2020-06-07] MEDS ORDERED: lisinopriL 10 MG TAB PO ONE (13:30)
--- NOTE | 2020-06-07 15:57 | Discharge Summary ---
Date of Service June 07, 2020 Admission HPI Per Admitting Provider DICTATED BY: Angel Mitchell MD DATE OF ADMISSION: 06/06/2020 CHIEF COMPLAINT: Chest pain and shortness of breath on exertion. HISTORY OF PRESENT ILLNESS: This is a 69-year-old female with past medical history significant for hyperlipidemia, obstructive sleep apnea, not using CPAP as per the Epic, deviated nasal septum, hypertension, GERD, hereditary and idiopathic peripheral neuropathy, who lives with her , comes with chest pain. The patient says she is having chest pain since the last 4-5 days on the middle of the chest radiating to the right side and to the back, pressure like feeling 2/10 to 3/10 in severity. It is mostly constant, sometimes comes and goes, she is also getting short of breath on exertion. The patient has been dealing with shortness of breath for the last 4-5 years. This is progressively getting worse. Today walking from the parking to the ER, she became short of breath. She had hiatal hernia thought could be from that. Denies any fever, chills. No headache, no blurred vision, no earache, no runny nose, no sore throat. She says she lost loss of sense of smell and taste in August, but she is okay now. Once in a while, she thinks the food gets stuck in the lower part of esophagus, but did not had any problems with that. Denies any abdominal pain. No nausea or vomiting, no sweating, no dizziness. Normal bowel and bladder movements. No swelling in the legs. Currently resting comfortably and hemodynamically stable. Says the last few days climbing steps is making her short of breath and also making the chest pain some what worse. Before it was only shortness of breath, but last 4-5 days she is also having chest pain. Principal Diagnosis Atypical Chest pain Hypertension Discharge Exam Constitutional WD/WN, vitals as above Eyes PERRL, conjunctivae normal, anicteric sclerae ENMT external ear and nose normal, oropharynx normal Neck trachea midline, no thyromegaly Respiratory normal respiratory effort, lungs clear to auscultation Cardiovascular RRR, no murmur, no edema Musculoskeletal no cyanosis or clubbing, extremities motor strength 5/5 Skin no rashes, warm and dry Neurologic PERRL, EOMI, accommodation nl, no face palsy, no dysarthria Psychiatric A+Ox3, euthymic affect Discharge Data Allergies Allergy/AdvReac Type Severity Reaction Status Date / Time No Known Allergies Allergy ` Verified 06/06/20 18:57 Consultations 06/06/20 21:35 ED Decision to Admit Stat 06/07/20 00:15 Consult Case Management - Discharge Planning Routine 06/07/20 08:00 Consult Cardiology Routine Ordered Studies 06/06/20 19:11 CT angio chest PE protocol Stat Hospital Course (1) Chest pain: Patient admitted with chest pain chest tightness, reproducible with palpation Appreciate input from cardiology, serial troponin negative echo no wall motion abnormality Stable to be discharged home today outpatient follow-up with cardiology for Nuclear stress test (2) Uncontrolled hypertension: on admission SBP was in 180's -possible causing the presenting symptoms ? increased dose of Lisinopril form 10 mg daily to 20 mg daily out pt follow up with Family physician Incidental finding of lung an breast nodule : Lung nodule ,11 mm subpleural nodule within the right lower lobe. Needs followup CAT scan in 3 months. Right breast nodule 10 mm, needs followup with mammogram. By CMS guidelines, a determination that the admission or continued stay is not medically necessary has been made by a member of the UR committee and a physician for this hospital stay, therefore a Code 44 will be completed and the Inpatient admission will be changed to outpatient. Total Time Total Time Spent Total Time Spent (In Minutes): 35 mins Total Time Includes: Examination of the Patient, Discharge Planning and Medication Reconciliation Discharge Plan Discharge Items Patient Disposition: Home - Self-Care Reason For Visit: CHEST PAIN Discharge Diagnosis: Atypical chest pain: Hypertension Activity: Resume your previous activity Non-emergency contact: Primary Care Provider Call non-emergency contact if: you have any medication questions Follow-up/Referrals: Zoey Carter DO [Physician] - (Date & Time 06/10/2020 10:00 AM Provider Zoey Carter DO Department Family Practice [facility] ) Diet: Heart Healthy Addtl Attending Provider Instructions: Follow-up with cardiology for outpatient nuclear cardiac stress test Lung nodule ,11 mm subpleural nodule within the right lower lobe. Needs f ollowup CAT scan in 3 months. Right breast nodule 10 mm, needs followup with mammogram. Pending Studies at Discharge: No Stand-Alone Forms: [place]omo, Smoking Cessation Medications and DC Order Prescriptions: Continued pantoprazole 40 mg tablet,delayed release (DR/EC) 40 mg PO QAM RF: 0 aspirin 81 mg Tablet,Delayed Release (Dr/Ec) 81 mg PO QPM RF: 0 multivitamin Tablet 1 tab PO QAM RF: 0 vitamin B complex Tablet 1 tab PO DAILY RF: 0 ascorbic acid (vitamin C) 1,000 mg Tablet 0 g PO QAM RF: 0 biotin 5 mg Tablet 0 mg PO DAILY RF: 0 Changed lisinopril 10 mg tablet 20 mg PO QAM 30 Days Qty: 60 RF: 0 Discharge Orders: Discharge Order (Routine); Ordered 06/07/20 Ordered By: Megan Berry/Other Patient Handouts: Controlling High Blood Pressure, Tips for Using Less Salt, Low-Salt Choices, Exercise for a Healthier Heart, Your High Blood Pressure Risk Factors, What Is High Blood Pressure?, Low Salt Diet Dc, Heart Di sease Women Tips for Changes, Women and Heart Disease ..., Your Heart Is at Risk, Your Heart Risk Action Plan, Eating Heart-Healthy Foods, Blood Pressure Check Steps Admission Data Admit Date/Time: 06/06/20 22:33 Attending Provider: Megan Alvarado Admit Provider: Angel Mitchell Primary Care Provider: PCP,NO Other Providers: Angel Mitchell ; Peterson Wesley ; Sukumar Aragon ; Babatunde Anthony ; Negrito Angulo ; MariamaShay pimentel ; Jasiel Lyman ; Basia Apodaca ; Donna Mendoza ; Vikas Velásquez Other Interventions: Discharge Summary Assessment (RN) Last Done: 06/07/20 15:17
--- NOTE | 2020-06-07 17:12 | Communication Note ---
Date of Service: June 07, 2020 Late documentation of code 44 attestation: She is a 69-year-old female with significant past medical history of LUIS MANUEL not on CPAP, hyperlipidemia, hypertension, GERD and hereditary and idiopathic peripheral neuropathy was admitted with chest pain and shortness of breath Her chart, test results, EKG and imaging studies reviewed. Cardiology note reviewed and the patient will have a Lexiscan stress test as an outpatient. She is medically stable to be discharged By CMS guidelines, a determination that the admission or continued stay is not medically necessary has been made by a member of the UR committee and a physician for this hospital stay, therefore a Code 44 will be completed and the Inpatient admission will be changed to outpatient. Dr Kasi Rae (Member UR committee)
[2020-06-07] MEDS ORDERED: ASPIRIN 81 MG ECTAB PO SCH (21:00)
== END 2020-06-07 17:02 | disposition home or self-care (01) | DRG 305 ==
LOC: ED 16:47 → 2N 22:33